=== PATIENT | female | born 1975 ===

== ENCOUNTER 2019-06-27 06:05 | Day surgery (SDC) | payer OTHER ==
[~2019-06-27 06:05] MED LIST: LABETALOL HCL100 MG PO; LIPITOR20 MG PO; METHYLDOPA250 MG PO
== END 2019-06-27 10:15 | disposition home or self-care (01) ==
LOC: CIR.AMB 06:05
DX: N93.8 Other specified abnormal uterine and vaginal bleeding (principal); D25.9 Leiomyoma of uterus, unspecified